=== PATIENT | female | born 1955 | race Caucasian/White ===

== ENCOUNTER 2020-09-25 12:39 | Outpatient (CLI) | payer MEDICARE ==
--- NOTE | 2020-09-25 13:09 | MMO ---
Bilateral MAMMO Bilat Screen [facility]. CLINICAL HISTORY: Patient is 65 years old and is seen for screening. The patient has no family history of breast cancer. The patient has no personal history of cancer. The patient has a history of right Ultrasound Guided Core Biopsy in June, - benign. VIEWS: The views performed were: bilateral craniocaudal with tomosynthesis and bilateral mediolateral oblique with tomosynthesis. FILMS COMPARED: The present examination has been compared to prior imaging studies performed at [facility] on 06/10/2016, 06/15/2016, 08/28/2019 and 09/09/2019. This study has been interpreted with the assistance of computer-aided detection. MAMMOGRAM FINDINGS: The breasts are heterogeneously dense, which could obscure a lesion on mammography. There is a stable mass with associated biopsy clip seen in the posterior region of the right breast at 12 o'clock. There are no suspicious masses, suspicious calcifications, or new areas of architectural distortion. IMPRESSION: THERE IS NO MAMMOGRAPHIC EVIDENCE OF MALIGNANCY. A ROUTINE FOLLOW-UP MAMMOGRAM IN 1 YEAR IS RECOMMENDED. THE RESULTS OF THIS EXAM WERE SENT TO THE PATIENT. ACR BI-RADS Category 2 - Benign finding MAMMOGRAPHY NOTE: 1. A negative mammogram report should not delay a biopsy if a dominant of clinically suspicious mass is present. 2. Approximately 10% to 15% of breast cancers are not detected by mammography. 3. Adenosis and dense breasts may obscure an underlying neoplasm. Reported by: ANDRE RAMÍREZ MD Electonically Signed: [id number]
== END 2020-09-25 12:40 | disposition home or self-care (01) ==
LOC: BICMAMMO 12:39
PROVIDERS: ATTEND Nurse Practitioner Family
DX: Z12.31 Encounter for screening mammogram for malignant neoplasm of breast (principal); Z91.89 Other specified personal risk factors, not elsewhere classified
CPT/HCPCS: 77063; 77067

== ENCOUNTER 2021-06-22 | Emergency (ER) | payer MEDICARE | END 2021-06-22 16:08 | disposition home or self-care (01) ==

== ENCOUNTER 2021-10-20 09:55 | Outpatient (CLI) | payer MEDICARE | END 2021-10-20 09:56 | disposition home or self-care (01) | LOC: BICMAMMO 09:55 | PROVIDERS: ATTEND Nurse Practitioner Family | DX: Z12.31 Encounter for screening mammogram for malignant neoplasm of breast (principal); Z91.89 Other specified personal risk factors, not elsewhere classified | CPT/HCPCS: 77063; 77067 ==

== ENCOUNTER 2024-06-13 14:15 | Outpatient (CLI) | payer MEDICARE | END 2024-06-13 14:16 | disposition home or self-care (01) | LOC: BICMAMMO 14:15 | PROVIDERS: ATTEND Family Medicine | DX: Z13.820 Encounter for screening for osteoporosis (principal); Z78.0 Asymptomatic menopausal state | CPT/HCPCS: 77080 ==

== ENCOUNTER 2025-07-08 12:37 | Outpatient (CLI) | payer MEDICARE | END 2025-07-08 12:38 | disposition home or self-care (01) | LOC: RAD 12:37 | PROVIDERS: ATTEND Family Medicine | DX: M25.551 Pain in right hip (principal); Z91.81 History of falling ==